=== PATIENT | female | born 2000 | race Caucasian/White ===

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

== ENCOUNTER 2022-06-27 18:40 | Emergency (ER) | payer OTHER ==
[~2022-06-27] VITALS: Ht 154.9 cm; Wt 65.8 kg
[~2022-06-27 18:40] MED LIST changes: +NEXPLANON68 MG SQ
[2022-06-27 19:04] VITALS: BP 154/96
[2022-06-27 20:00] LABS: Influenza A, PCR NEGATIVE (NEGATIVE); Influenza B, PCR NEGATIVE (NEGATIVE); Resp Syncytial Virus, PCR NEGATIVE (NEGATIVE); SARS-Cov-2 (COVID-19) PCR, MMC NEGATIVE (NEGATIVE)
== END 2022-06-27 21:01 | disposition home or self-care (01) ==
LOC: ER 18:40
PROVIDERS: Student in an Organized Health Care Education/Training Program
DX: J06.9 Acute upper respiratory infection, unspecified (principal); F17.210 Nicotine dependence, cigarettes, uncomplicated
CPT/HCPCS: 0241U; 71046; 81025; 99285-25; A9270

== ENCOUNTER → 2022-11-19 | Outpatient (CLI) | payer OTHER ==
[2022-11-20 09:10] LABS: HIV AB/P24 AG SCREEN Non Reactive (Non Reactive)
[2022-11-21 01:11] LABS: CHLAMYDIA TRACHOMATIS, NAA Negative (Negative)
[2022-11-21 18:06] LABS: HPV 16 Negative (Negative); HPV 18 Negative (Negative); HPV OTHER HR TYPES Positive (Negative)
[2022-11-23 07:10] LABS: HSV-1 DNA Negative (Negative); HSV-2 DNA Negative (Negative)
== END ==
LOC: LAB SHORT 15:51 → LAB 15:51
PROVIDERS: Family Medicine
DX: Z01.419 Encounter for gynecological examination (general) (routine) without abnormal findings (principal)
CPT/HCPCS: 86592; 87389; 87491; 87529; 87591; 87624; G0145

== ENCOUNTER 2022-12-22 22:20 | Emergency (ER) | payer OTHER ==
[~2022-12-22] VITALS: Ht 154.9 cm; Wt 74.8 kg
[2022-12-22] MEDS ORDERED: Flonase 0.05% N16 GM (22:36)
[2022-12-22] MEDS ORDERED: DULCOLAX5 MG PO (22:37)
[2022-12-22 22:44] LABS: BASOPHILS ABSOLUTE AUTO 0.05 K/mm3 (0.00-0.23); BASOPHILS PERCENT AUTO 1 % (0-2); EOSINOPHILS ABSOLUTE AUTO 0.12 K/mm3 (0.00-0.68); EOSINOPHILS PERCENT AUTO 2 % (0-6); Hematocrit 41.2 % (33.0-51.0); Hemoglobin 13.9 g/dL (11.5-16.0); IMMATURE GRAN ABSOLUTE AUTO 0.01 K/mm3 (0.00-0.10); IMMATURE GRAN PERCENT AUTO 0 % (0-1); LYMPHOCYTES ABSOLUTE AUTO 3.31 K/mm3 (0.84-5.20); LYMPHOCYTES PERCENT AUTO 41 % (21-46); MONOCYTES PERCENT AUTO 8 % (4-13); Mean Corpuscular HGB 30.1 pg (26.0-34.0); Mean Corpuscular HGB Conc 33.7 g/dL (31.5-36.5); Mean Corpuscular Volume 89 fL (80-100); Mean Platelet Volume 11.6 fL (9.1-12.4); NEUTROPHILS ABSOLUTE AUTO 3.94 K/mm3 (1.96-9.15); NEUTROPHILS PERCENT AUTO 49 % (41-73); Platelet Count 259 K/mm3 (150-400); RDW Standard Deviation 38.9 fL (35.1-46.3); Red Blood Cell Count 4.62 M/mm3 (3.80-5.20); White Blood Cell Count 8.03 K/mm3 (4.00-11.30)
[2022-12-22 22:46] LABS: Source, Urine Clean Catch
[2022-12-22 23:12] LABS: Beta HCG, Quantitative, Serum <1 mIU/mL (0-3)
[2022-12-22 23:19] LABS: Bilirubin, Urine Neg (Neg); Blood, Urine Neg (Neg); Glucose Qualitative, Urine Neg (Neg); Ketones, Urine Neg (Neg); Leukocyte Esterase, Urine Neg (Neg); Nitrite, Urine Neg (Neg); Protein, Urine 1+ (Neg); Urobilinogen, Urine 3+ (Normal)
[2022-12-22 23:32] LABS: Appearance, Urine Clear (Clear); Color, Urine Yellow (P-Yellow)
[2022-12-22 23:35] LABS: Alanine Aminotransfer (ALT/SGP 34 U/L (12-78); Albumin, Blood 4.1 g/dL (3.4-5.0); Albumin/Globulin Ratio 1.1 (0.8-1.8); Alk Phos 79 U/L (50-136); Anion Gap 5 mmol/L (6-16); Aspartate Aminotrans (AST/SGOT 24 U/L (12-37); Bilirubin, Total 0.7 mg/dL (0.1-1.0); Blood Urea Nitrogen 11 mg/dL (8-24); Bun/Creatinine Ratio 20.8 (12.0-20.0); CO2, Blood 26 mmol/L (21-32); Calcium, Blood 8.7 mg/dL (8.5-10.1); Chloride, Blood 109 mmol/L (98-108); Creatinine, Blood 0.53 mg/dL (0.40-1.00); Globulin, Blood 3.8 g/dL (2.2-4.0); Glomerular Filtration Rate 135 (60-); Glucose, Blood 82 mg/dL (70-99); Potassium, Blood 3.7 mmol/L (3.5-5.5); Sodium, Blood 140 mmol/L (136-145); Total Protein, Blood 7.9 g/dL (6.4-8.2)
[2022-12-23 00:18] LABS: C-Reactive Protein, High Sens. 0.884 mg/L (0.000-3.000)
[2022-12-23 01:30] VITALS: BP 105/67
[2022-12-23] MEDS ORDERED: ACET500 PO (01:44)
== END 2022-12-23 01:50 | disposition home or self-care (01) ==
LOC: ER 22:20
PROVIDERS: Emergency Medicine
DX: R10.10 Upper abdominal pain, unspecified (principal); R10.13 Epigastric pain; R10.33 Periumbilical pain; F17.210 Nicotine dependence, cigarettes, uncomplicated
CPT/HCPCS: 80053; 84702; 85025; 86141; 99284

== ENCOUNTER 2023-02-20 22:03 | Emergency (ER) | payer OTHER ==
[~2023-02-20] VITALS: Ht 180.3 cm; Wt 71.2 kg
[~2023-02-20 22:03] MED LIST changes: +ACET500 PO; +DULCOLAX5 MG PO
[2023-02-20 23:02] VITALS: BP 133/86
[2023-02-21 00:05] LABS: BASOPHILS ABSOLUTE AUTO 0.09 K/mm3 (0.00-0.23); BASOPHILS PERCENT AUTO 1 % (0-2); EOSINOPHILS ABSOLUTE AUTO 0.14 K/mm3 (0.00-0.68); EOSINOPHILS PERCENT AUTO 1 % (0-6); Hematocrit 40.7 % (33.0-51.0); Hemoglobin 13.5 g/dL (11.5-16.0); IMMATURE GRAN ABSOLUTE AUTO 0.03 K/mm3 (0.00-0.10); IMMATURE GRAN PERCENT AUTO 0 % (0-1); LYMPHOCYTES ABSOLUTE AUTO 3.59 K/mm3 (0.84-5.20); LYMPHOCYTES PERCENT AUTO 33 % (21-46); MONOCYTES ABSOLUTE AUTO 0.59 K/mm3 (0.16-1.47); MONOCYTES PERCENT AUTO 6 % (4-13); Mean Corpuscular HGB 30.1 pg (26.0-34.0); Mean Corpuscular HGB Conc 33.2 g/dL (31.5-36.5); Mean Corpuscular Volume 91 fL (80-100); Mean Platelet Volume 11.6 fL (9.1-12.4); NEUTROPHILS ABSOLUTE AUTO 6.33 K/mm3 (1.96-9.15); NEUTROPHILS PERCENT AUTO 59 % (41-73); Platelet Count 259 K/mm3 (150-400); RDW Coefficient Variation 12.2 % (11.7-14.2); RDW Standard Deviation 40.5 fL (35.1-46.3); Red Blood Cell Count 4.48 M/mm3 (3.80-5.20); White Blood Cell Count 10.77 K/mm3 (4.00-11.30)
[2023-02-21 00:35] LABS: Albumin/Globulin Ratio 1.1 (0.8-1.8); Bun/Creatinine Ratio 18.5 (12.0-20.0); Calcium, Blood 9.3 mg/dL (8.5-10.1); Creatinine, Blood 0.65 mg/dL (0.40-1.00); Globulin, Blood 3.7 g/dL (2.2-4.0); Potassium, Blood 3.6 mmol/L (3.5-5.5); Thyroid Stimulating Hormone 0.999 uIU/mL (0.360-4.800); Total Protein, Blood 7.7 g/dL (6.4-8.2)
== END 2023-02-21 02:43 | disposition left against medical advice (07) ==
LOC: ER 22:03
PROVIDERS: Student in an Organized Health Care Education/Training Program
DX: R00.2 Palpitations (principal); Z53.21 Procedure and treatment not carried out due to patient leaving prior to being seen by health care provider
CPT/HCPCS: 80053; 84443; 84703; 85025; 93005; 93010; 99282-25

== ENCOUNTER 2024-02-20 11:55 | Day surgery (SDC) | payer OTHER ==
[~2024-02-20] VITALS: Ht 154.9 cm; Wt 75.0 kg
[~2024-02-20 11:55] MED LIST changes: +LIDO700A20 TOP; +Lactated Ringer's 1,000 ML IV ONE; +propofoL 50 ML IV ONE
[2024-02-20] MEDS ORDERED: Ventolin5 MG/1 ML (12:19)
[2024-02-20] MEDS ORDERED: Lactated Ringer's 1,000 ML IV ONE (13:17)
--- NOTE | 2024-02-20 14:15 | NUR ---
02/20/24 1415 Aida Daley 1202 PT. SLEEPY, GIGGLY. PT. VERBALIZES NEEDING A LITTLE MORE TIME TO WAKE UP.
[2024-02-20 14:39] VITALS: BP 106/60
== END 2024-02-20 14:30 | disposition home or self-care (01) ==
LOC: ORSCSDS 11:55
PROVIDERS: Internal Medicine Gastroenterology
PROC: 0DJD8ZZ Inspection of Lower Intestinal Tract, Via Natural or Artificial Opening Endoscopic (ICD-10-PCS; principal; 2024-02-20 13:15)
DX: K59.04 Chronic idiopathic constipation (principal); F17.210 Nicotine dependence, cigarettes, uncomplicated; Z79.899 Other long term (current) drug therapy
CPT/HCPCS: J2704; J7120

== ENCOUNTER → 2024-12-03 | Outpatient (CLI) | payer OTHER ==
[~2024-12-03] MED LIST changes: -Lactated Ringer's 1,000 ML IV ONE; +Ventolin5 MG/1 ML; -propofoL 50 ML IV ONE
== END | disposition home or self-care (01) ==
LOC: LAB SHORT 18:00 → LAB 18:00
DX: N64.52 Nipple discharge (principal); R51.9 Headache, unspecified; R11.0 Nausea
CPT/HCPCS: 87070; 87075; 87077; 87186; 87205